=== PATIENT | female | born 1995 | race African-American/Black ===

== ENCOUNTER 2018-12-10 16:07 | Observation (INO) | payer MEDICAID ==
[~2018-12-10] VITALS: Ht 167.6 cm; Wt 122.5 kg
[2018-12-10] MEDS ORDERED: PREN-55 MT (17:24)
[2018-12-10 18:08] LABS: CLARITY URINE CLOUDY (CLEAR); COLOR URINE YELLOW (YELLOW); KETONES URINE NEGATIVE (NEGATIVE); LEUKOCYTE ESTERASE URINE 2+ (NEGATIVE); NITRITE URINE NEGATIVE (NEGATIVE); OCCULT BLOOD URINE TRACE (NEGATIVE); PH URINE 7.5 (4.5-8.0); PROTEIN URINE NEGATIVE (NEGATIVE); SPECIFIC GRAVITY URINE 1.007 (1.005-1.030)
[2018-12-10] MEDS ORDERED: LACTATED RINGERS 1,000 ML IV SCH (19:00)
[2018-12-10] MEDS ORDERED: CEFAZOLIN 1000MG PREMIX 50 ML IV SCH (19:00)
== END 2018-12-10 21:10 | disposition home or self-care (01) ==
LOC: 8 EST LDRP 16:07
PROVIDERS: ADMIT Obstetrics & Gynecology; ATTEND Obstetrics & Gynecology
DX: O36.8130 Decreased fetal movements, third trimester, not applicable or unspecified (principal); O26.893 Other specified pregnancy related conditions, third trimester; R10.30 Lower abdominal pain, unspecified; Z3A.28 28 weeks gestation of pregnancy
CPT/HCPCS: 76805; 76818; 81003; 96365; 99281; G0378; J0690; 96360; 96361